=== PATIENT | female | born 1970 | race Caucasian/White ===

== ENCOUNTER 2020-05-18 13:19 | Emergency (ER) | payer BC ==
[2020-05-18 13:38] VITALS: RESP 18; TEMP 98
[2020-05-18] MEDS ORDERED: SODIUM CHLORIDE 0.9% 1,000 ML IV STA (14:57)
[2020-05-18] MEDS ORDERED: ACETAMINOPHEN TAB 325 MG TAB PO STA (14:57)
[2020-05-18] MEDS ORDERED: diphenhydrAMINE 50 MG/ML 1 ML VIAL IVP STA (14:57)
[2020-05-18] MEDS ORDERED: METOCLOPRAMIDE 5 MG/ML 2 ML VIAL IVP STA (14:57)
--- NOTE | 2020-05-18 15:34 | CT ---
EXAMINATION TYPE: CT brain wo con DATE OF EXAM: 05/18/2020 COMPARISON: None. HISTORY: Headache for [address] DLP: 1079.4 mGycm. Automated Exposure Control for Dose Reduction was Utilized. TECHNIQUE: CT scan of the head is performed without contrast. FINDINGS: There is no acute intracranial hemorrhage, mass effect, or midline shift identified. The ventricles and sulci are within normal limits in size. Nichole-white matter differentiation is maintai delvin. The globes are intact and the visualized sinuses are clear. IMPRESSION: No acute intracranial hemorrhage or midline shift is seen.
[2020-05-18] MEDS ORDERED: KETOROLAC 15 MG/ML 1 ML VIAL IVP STA (16:11)
--- NOTE | 2020-05-18 17:04 | ED ---
General Adult HPI - General Chief complaint: Headache Stated complaint: Headache Time Seen by Provider: 05/18/20 14:46 Source: patient, RN notes reviewed, old records reviewed Limitations: no limitations - History of Present Illness Initial comments: 49-year-old female patient proceeded for evaluation of a mild posterior lobe headache which has been waxing and waning for the last 5 days. Patient reports that his somewhat sharp in nature. It is not the worst headache of her life. She states that the headache improves when she takes Tylenol however it has been coming back. Denies any fevers or any other complaints. Denies any changes in vision vomiting or loss of consciousness. Systemic: Pt denies fatigue, fever/chills, rash. Pt denies weakness, night swe ats, weight loss. Neuro: Pt denies visual disturbances, syncope or pre-syncope. HEENT: Pt denies ocular discharge or irritation, otalgia, rhinorrhea, pharyngitis or notable lymphadenopathy. Cardiopulmonary: Pt denies chest pain, SOB, heart palpitations, dyspnea on exertion. Abdominal/GI: Pt denies abdominal pain, n/v/d. : Pt denies dysuria, burning w/ urination, frequency/urgency. Denies new onset urinary or bowel incontinence. MSK: Pt denies myalgia, loss of strength or function in extremities. Neuro: Pt denies new onset weakness, paresthesias. - Related Data Allergies Allergy/AdvReac Type Severity Reaction Status Date / Time tramadol AdvReac Vomiting Verified 05/18/20 13:38 Review of Systems ROS Statement: Those systems with pertinent positive or pertinent negative responses have been documented in the HPI. ROS Other: All systems not noted in ROS Statement are negative. Past Medical History History of Any Multi-Drug Resistant Organisms: None Reported Past Surgical History: Orthopedic Surgery Additional Past Surgical History / Comment(s): partial L knee, carpal tunnel Smoking Status: Former smoker Past Alcohol Use History: None Reported Past Drug Use History: None Reported General Exam - General Exam Comments Initial Comments: Constitutional: NAD, AOX3, Pt has pleasant affect. HEENT: NC/AT, trachea midline, neck supple, no lymphadenopathy. External ears appear normal, without discharge. Mucous membranes moist. Eyes PERRLA, EOM intact. There is no scleral icterus. No pallor noted. Cardiopulmonary: RRR, no murmurs, rubs or gallops, no JVD noted. Lungs CTAB in anterior and posterior drake. No peripheral edema. Abdominal exam: Abdomen soft and non-distended. Abdomen non-tender to palpation in all 4 quadrants. Bowel sounds active in LLQ. No hepatosplenomegaly. No ecchymosis Neuro: CN II-XII intact. No nuchal rigidity. No raccon eyes, no johnson sign, no hemotympanum. No cervical spinal tenderness. MSK: Sensation intact in upper and lower extremities. Full active ROM in upper and lower extremities, 5/5 stregnth. Limitations: no limitations Course Vital Signs 05/18/20 05/18/20 13:35 15:33 Temperature 98.0 F Pulse Rate 78 72 Respiratory 18 18 Rate Blood Pressure 117/82 149/92 O2 Sat by Pulse 98 100 Oximetry Medical Decision Making - Medical Decision Making 49-year-old female patient presents to ED for evaluation of headache. Has no explained the last 5 days. Vital signs are stable, afebrile. Physical exam is fully intact neurologic exam. CT brain without contrast negative for any acute intracranial processes. Patient headache resolved entirely during stay within the emergency department. We'll discharge the patient follow up with her primary care provider and return if any worsening symptoms. Case discussed with Dr. Michelle. Disposition Clinical Impression: Headache Disposition: HOME SELF-CARE Condition: Stable Instructions (If sedation given, give patient instructions): Acute Headache (ED) Additional Instructions: follow-up with primary care provider tomorrow. Return to ER if any worsening symptoms. Is patient prescribed a controlled substance at d/c from ED?: No Referrals: None,Stated [Primary Care Provider] - 1-2 days Khadra Eller MD [REFERRING] - 1-2 days
[2020-05-18 17:23] VITALS: BP 135/81; PULSE 67
== END 2020-05-18 17:23 | disposition home or self-care (01) ==
LOC: EC 13:19
DX: R51 Headache (principal); Z88.5 Allergy status to narcotic agent; Z87.891 Personal history of nicotine dependence
CPT/HCPCS: 70450; 99284; 96374; 96375 ×2; 96361; J1200; J2765; J1885